=== PATIENT | male | born 1960 | race Caucasian/White ===

== ENCOUNTER 2016-09-29 07:19 | Emergency (ER) | payer MEDICARE ==
[2016-09-29] MEDS ORDERED: IPRATROPIUM/ALBUTEROL SULFATE 3 ML AMPUL.NEB NEB ONE (07:22)
[2016-09-29] MEDS ORDERED: FUROSEMIDE 40 MG/4 ML VIAL ONE (07:22)
--- NOTE | 2016-09-29 07:28 | ED Physician Documentation ---
General Adult - HISTORIAN Historian: patient, paramedics - HPI Stated Complaint: shortness of breath Chief Complaint: General Adult Onset: hours Timing: still present Severity: moderate Further Comments: yes (Pt is a 56 yo male with sob, no chest pain. Pt has not been feeling well for 2 days. Pt is an insulin dependent diabetic, but stopped taking his insulin when he wasn't feeling well. Pt has hx CHF, heavy smoking, R AKA.) - ROS CONST: weakness EYES/ENT: none CVS/RESP: shortness of breath GI/: none MS/SKIN/LYMPH: other (ulceration L heel, R AKA) - PAST HX Past History: AMI, hypertension, other (Arthritis, R AKA, CHF, Anxiety, Depression, DM, HLD, HTN, Heavy smoker, schizophrenia.) Other History: diabetes Type 2 Surgeries/Procedures: other (R AKA) Allergies/Adverse Reactions: Allergies Allergy/AdvReac Type Severity Reaction Status Date / Time No Known Allergies Allergy Unverified 09/29/16 07:48 Home Medications: Ambulatory Orders Medication Instructions Recorded Amitriptyline HCl 25 mg PO HS 09/29/16 Furosemide [Furosemide] 20 mg PO DAILY 09/29/16 Gabapentin [Neurontin] 600 mg PO TID 09/29/16 Insulin Aspart [Novolog Flexpen] 10 units SQ TID 09/29/16 Insulin Glargine,Hum.rec.anlog 40 units SQ HS 09/29/16 [Lantus Solostar] Lorazepam [Ativan] 2 mg PO HS 09/29/16 Metoprolol Tartrate [Lopressor] 200 mg PO DAILY 09/29/16 Omeprazole [Omeprazole] 40 mg PO AM 09/29/16 Potassium Chloride [Klor-Con 10 meq PO BID 09/29/16 Sprinkle] Simvastatin [Zocor] 80 mg PO HS 09/29/16 Tramadol HCl [Ultram] 50 mg PO Q4H PRN 09/29/16 Venlafaxine HCl [Effexor Xr] 37.5 mg PO DAILY 09/29/16 Venlafaxine HCl [Effexor Xr] 150 mg PO DAILY 09/29/16 - SOCIAL HX Smoking History: other (greater than 2 packs/day) - FAMILY HX Family History: No - REVIEWED ASSESSMENTS Nursing Assessment Reviewed: Yes Vitals Reviewed: Yes Progress - Progress Progress: Duoneb HFN x 2 Lasix 40 mg IV venous pH 7.32 u/a 2+ glucose, 2+blood, 3+ protein CXR: Impression: Cardiomegaly with pulmonary congestion/edema Right lower lung consolidation with small pleural effusion Left parahilar infiltrate/ pulmonary edema. Recommend followup to resolution Pt's PCP is Dr. Patricia Castle at [facility]. Levaquin 500 mg IV Transfer to [facility], Dr. Patel. - EKG/XRAY/CT EKG: NSR (HR=93 normal pr interval; normal axis; RBBB.) ED Results Lab/Radiology - Orders Orders: ED Orders Category Date Time Status Furosemide [Lasix] Med 09/29/16 07:22 Discontinued 40 mg .ROUTE .STK-MED ONE Ipratropium/Albuterol Sulfate [Duoneb] Med 09/29/16 07:22 Discontinued 3 ml NEB .STK-MED ONE General Adult Physical Exam - PHYSICAL EXAM GENERAL APPEARANCE: moderate distress EENT: pharynx normal NECK: normal inspection, supple RESPIRATORY: no resp distress, chest non-tender, wheezes, rales CVS: reg rate & rhythm, heart sounds normal ABDOMEN: soft, no organomegaly, normal bowel sounds RECTAL: heme positive stool BACK: normal inspection, no CVA tenderness SKIN: warm/dry, other (L heel ulceration, R AKA) EXTREMITIES: normal range of motion NEURO: oriented X3, motor nml, sensation nml Discharge Clincal Impression: SOB (shortness of breath), DM, Hyperglycemia, pneumonia, Heme positive stool CHF (congestive heart failure) Qualifiers: Congestive heart failure type: unspecified congestive heart failure type Congestive heart failure chronicity: chronic Qualified Code(s): I50.9 - Heart failure, unspecified Anemia Qualifiers: Anemia type: unspecified type Qualified Code(s): D64.9 - Anemia, unspecified Referrals: Primary Doctor,No [Primary Care Provider] - Home Medications: Ambulatory Orders Amitriptyline HCl 25 mg PO HS 09/29/16 Furosemide [Furosemide] 20 mg PO DAILY 09/29/16 Gabapentin [Neurontin] 600 mg PO TID 09/29/16 Insulin Aspart [Novolog Flexpen] 10 units SQ TID 09/29/16 Insulin Glargine,Hum.rec.anlog [Lantus Solostar] 40 units SQ HS 09/29/16 Lorazepam [Ativan] 2 mg PO HS 09/29/16 Metoprolol Tartrate [Lopressor] 200 mg PO DAILY 09/29/16 Omeprazole [Omeprazole] 40 mg PO AM 09/29/16 Potassium Chloride [Klor-Con Sprinkle] 10 meq PO BID 09/29/16 Simvastatin [Zocor] 80 mg PO HS 09/29/16 Tramadol HCl [Ultram] 50 mg PO Q4H PRN 09/29/16 Venlafaxine HCl [Effexor Xr] 37.5 mg PO DAILY 09/29/16 Venlafaxine HCl [Effexor Xr] 150 mg PO DAILY 09/29/16 Condition: Stable Disposition: 02 XFER SHT-TRM HOSP Decision to Admit: NO Decision Time: 08:33
[2016-09-29 07:37] LABS: BASOPHILS % 0.4 (0.0-1.5); EOSINOPHILS % 2.4 % (0.0-6.8); MEAN CORPUSCULAR HEMOGLOBIN 28.5 pg (28.0-34.0); MEAN CORPUSCULAR VOLUME 90.6 fl (80.0-100.0); NEUTROPHILS # 6.5 # k/uL (1.4-7.7)
[2016-09-29 08:03] LABS: APPEARANCE,URINE CLEAR (CLEAR); COLOR,URINE YELLOW (YELLOW); OCCULT BLOOD,URINE 2+ (NEGATIVE); UROBILINOGEN URINE 0.2 Eu (0.2-1.0)
[2016-09-29] MEDS ORDERED: INSULIN REGULAR, HUMAN 100 UNIT/ML 3ML VIAL SQ STA ×2 (08:03→09:18)
[2016-09-29] MEDS ORDERED: LEVOFLOXACIN 500MG/D5W 100ML 100 ML IV ONE (10:22)
[2016-09-29] MEDS ORDERED: LEVOFLOXACIN 500MG/D5W 100ML 500 MG in PREMIX BAG 1 BAG IV SCH (10:30)
[2016-09-29 11:03] VITALS: BP 184/87
--- NOTE | 2016-09-30 05:21 | Diagnostic Imaging Report ---
TOBIAS BARAJAS [facility] [id number] [facility] [address] [place] [address]. [id number] Report Submission Date: September 29, 2016 7:54:58 AM CDT Patient Study Name: KIAN BROWN Date: September 29, 2016 7:37:26 AM CDT Modality Type: CR Gender: M Description: CHEST : 56 Institution: [facility] Physician: TOBIAS BARAJAS Single frontal view of the chest History: PCXR, SOA X2 DAYS (Hx) / SOA Findings: Comparison: October 12, 2007 Cardiomegaly, prominent pulmonary nori are again noted. There are diffuse reticulonodular lung opacities slightly more prominent on the current study. There is right basilar opacity which obscures the right hemidiaphragm. Patient is rotated. Small right pleural effusion. There is left parahilar atelectasis / opacity. No acute osseous pathology Impression: Cardiomegaly with pulmonary congestion/edema Right lower lung consolidation with small pleural effusion Left parahilar infiltrate/ pulmonary edema. Recommend followup to resolution Electronically signed on September 29, 2016 7:54:58 AM CDT by: Maryellen ALVAREZ
== END 2016-09-29 10:59 | disposition short-term general hospital (02) ==
LOC: ED 07:19
DX: R06.02 Shortness of breath (principal); E11.9 Type 2 diabetes mellitus without complications; J18.9 Pneumonia, unspecified organism; I50.9 Heart failure, unspecified; D64.9 Anemia, unspecified
CPT/HCPCS: 36415; 71010; 80053; 81002; 82272; 82550; 82553; 83880; 84484; 85025; 85379; 87040; J1815; J1940; J1956; 96374; 99284

== ENCOUNTER 2017-01-27 11:30 | Inpatient (IN) | payer MEDICARE ==
[2017-01-27] MEDS ORDERED: ALBUTEROL 90MCG/PUFF INHALER IH PRN (15:14)
[2017-01-27] MEDS ORDERED: ONDANSETRON HCL 4 MG TAB.RAPDIS PO PRN (15:19)
[2017-01-27] MEDS ORDERED: BISACODYL 10 MG SUPP.RECT RC PRN (15:19)
[2017-01-27] MEDS ORDERED: LISINOPRIL 5 MG TABLET PO ONE (15:23)
[2017-01-27] MEDS ORDERED: GABAPENTIN 300 MG CAPSULE ONE (15:23)
[2017-01-27] MEDS ORDERED: VENLAFAXINE HCL 37.5 MG CAP.ER.24H PO ONE (15:26)
[2017-01-27] MEDS ORDERED: POTASSIUM CHLORIDE 10 MEQ TABLET.ER PO ONE (15:26)
--- NOTE | 2017-01-27 15:26 | History and Physical Report ---
History of Present Illnes - History of Present Illness Reason for Visit: gait disturbance History of Present Illness: Patient is a 56-year-old white male who recently was admitted to the [facility] for a left total knee replacement. Patient has had osteoarthritis that is been causing some increasing difficulties with ambulation for some time. Patient did not have any intraoperative or postoperative complications. Patient was transferred to this institution for further rehab services. Patient does have a history of diabetes mellitus peripheral vascular disease, hypertension, congestive heart failure,and iron deficiency anemia. At one time patient was diagnosed with schizophrenia but is currently not on any medications for this. Patient denies it is having any symptoms at this time. - Past Medical History Cardiac: CHF (diastolic), HTN, Hyperlipidemia, Other (peripheral vascular disease) Pulmonary: Other (bilateral pleural effusion, had 2l removed off right, 1 l off left) Gastrointestinal: GERD Heme/Onc: Iron deficiency anemia Hepatobiliary: denies: Cirrhosis, Cholelithiasis Psych: Depression, Schizophrenia Renal/: Chronic renal insuff, Other (hx of urinary retention) Endocrine: Diabetes (type 2) - Past Surgical History Past Surgical History: Hernia Repair (umbilical), Other (AKA -right, dental surgery) - Past Family History Mother Family History: DM, Hypertension, (69yo, CKD, DM, HTN) Father Family History: ([place]) Sister 1 Family History: Hypertension - Past Social History Smoke: 2 packs per day Occupation: disabled, lives alone Alcohol: None Drugs: None Lives: Alone Domestic Violence: Negative - Health Maintenance Health Maintenance: Influenza Vaccine. denies: Pneumococcal Vaccine Influenza Vaccine: Current for this Influenza Season Pneumonia Vaccine: No Resuscitation Status: Resusciation Status Resuscitation Status Do Not Resuscitate - Unable to Obtain History Unable to Obtain: No Review of Systems - Review of Systems Constitutional: Chills. negative: Fever Eyes: negative: pain, vision change, conjunctivae inflammation, redness ENT: negative: Ear Pain, Ear Discharge, Nose Pain, Nose Discharge, Nose Congestion, Mouth Pain, Mouth Swelling, Throat Pain Respiratory: Cough, Shortness of Breath, Sputum (cream, no blood). negative: Hemoptysis Cardiovascular: negative: Chest Pain, Palpitations, Paroxysmal Noc. Dyspnea, Edema, Light Headedness Gastrointestinal: negative: Nausea, Vomiting, Abdominal Pain, Diarrhea, Constipation, Melena, Hematochezia Genitourinary: negative: Dysuria, Frequency, Incontinence, Hematuria Musculoskeletal: negative: Neck Pain, Shoulder Pain, Leg Pain, Foot Pain Skin: negative: Rash Neurological: negative: Weakness, Numbness, Change in Speech, Confusion - Medications/Allergies Allergies/Adverse Reactions: Allergies Allergy/AdvReac Type Severity Reaction Status Date / Time No Known Allergies Allergy Unverified 09/29/16 07:48 Home Medications: Home Medications Ferrous Sulfate [Feosol] 325 mg PO D 01/27/17 Metoprolol Succinate [Toprol XL] 100 mg PO D 01/27/17 Tamsulosin HCl [Flomax] 0.4 mg PO [id number] 01/27/17 Venlafaxine HCl [Effexor Xr] 75 mg PO BID 01/27/17 gliPIZIDE [Glucotrol] 1 tab PO D 01/27/17 Current Inpatient Medications: Current Inpatient Medications Albuterol (Ventolin Hfa) 1 puff IH QID PRN PRN Reason: Wheezing Amitriptyline HCl (Elavil) 25 mg PO HS [facility] Amoxicillin/Clavulanate Potassium (Augmentin 875mg/125mg) 1 each PO BS [facility] Stop: 01/30/17 12:00 Bisacodyl (Dulcolax) 10 mg RC DAILY PRN PRN Reason: Constipation Diltiazem HCl (Cardizem Cd) 240 mg PO DAILY [facility] Enoxaparin Sodium (Lovenox) 40 mg SQ QD [facility] Stop: 02/10/17 12:59 Famotidine (Pepcid) 20 mg PO 717 [facility] Glipizide (Glucotrol) mg PO D [facility] Guaifenesin (Mucinex) 600 mg PO BID [facility] Insulin Human Lispro (Humalog) 0 - 12 unit SQ TID [facility] PRN Reason: Protocol Lisinopril (Prinivil) 10 mg PO NOW ONE Stop: 01/27/17 15:24 Metronidazole (Flagyl) 500 mg PO Q8 [facility] Stop: 02/06/17 08:00 Miconazole Nitrate (Monistat) 1 appl TP BID [facility] Miscellaneous (Gabapentin [Neurontin]) 600 mg PO TID [facility] Miscellaneous (Metoprolol Succinate [Toprol Xl]) 100 mg PO D [facility] Miscellaneous (Potassium Chloride [Klor-Con Sprinkle]) 10 meq PO BID [facility] Miscellaneous (Venlafaxine Hcl [Effexor Xr]) 75 mg PO BID [facility] Miscellaneous (Chem Sticks) 1 each CHEMX3 [facility] Ondansetron HCl (Zofran Odt) 4 mg PO Q6H PRN PRN Reason: Nausea / Vomiting Pantoprazole Sodium (Protonix) 40 mg PO 0700 [facility] Polyethylene Glycol (Miralax) 17 gm PO 1100 [facility] Fluticasone/Salmeterol (Advair 250-50 Diskus) 1 each IH BID [facility] Sucralfate (Carafate) 1 gm PO ACHS [facility] Tamsulosin HCl (Flomax) 0.4 mg PO [id number] [facility] Exam - Exam Vital Signs: Vital Signs (72 hours) 01/27/17 13:23 Temperature 97.6 F Pulse Rate [ 82 Pulse ox] Respiratory 20 Rate Blood Pressure 156/79 [Left Arm] O2 Sat by Pulse 99 Oximetry General: Alert, Oriented to Person, Oriented to Place, Oriented to Time, Cooperative HEENT: Mouth Mucous membr. moist/[place], Nose Mucous membr. moist/[place], Poor Dentition, Hearing Grossly Normal Neck: Normal Range of Motion. No: Stridor, Lymphadenopathy Carotids: WNL Thyroid: WNL Lungs: Clear to auscultation, Normal air movement, Speaks full Sentences. No: Respiratory Distress, Wheezes, Rales, Rhonchi Cardiovascular: Regular rate, Normal S1, Normal S2, No murmurs Abdomen: Normal bowel sounds, Soft, No tenderness, No hepatospenomegaly, No masses. No: Distended Integumentary: Normal, [place], Warm, Dry, Other (2.8cm wound to the heal, stage 2) Extremities: No clubbing, No cyanosis, No edema. No: Normal pulses (decrease posterior tibialis and dorsal pedis ) Neurological: Normal gait, Normal speech, Strength Equal Bilat, Sensation intact Psych/Mental Status: Mental status NL, Mood NL, Appropriate Affect, Intact Judgment Assessment/Plan - Assessment/Plan (1) Gait disturbance Status: Acute Assessment: Patient will be started on OT and PT (2) Diabetes type 2, controlled Status: Chronic Qualifiers: Diabetes mellitus complication status: with neurologic complications Diabetes mellitus complication detail: with polyneuropathy Diabetes mellitus senior care insulin use: with senior care use Qualified Code(s): E11.42 - Type 2 diabetes mellitus with diabetic polyneuropathy; Z79.4 - intermediate (current) use of insulin Assessment: continue insulin dose (3) Essential hypertension Status: Chronic Assessment: continue home meds (4) History of schizophrenia Status: Chronic Assessment: currently not under treatment (5) Anemia Status: Chronic Qualifiers: Anemia type: iron deficiency Qualified Code(s): D64.9 - Anemia, unspecified (6) CHF (congestive heart failure) Status: Chronic Qualifiers: Congestive heart failure type: unspecified congestive heart failure type Congestive heart failure chronicity: chronic Qualified Code(s): I50.9 - Heart failure, unspecified Assessment: stable continue with home meds VTE Assessment - RISK FACTOR SCORE VTE RISK FACTOR SCORES: AGE 40-60 YEARS, ANTICIPATED BED CONFINEMENT OR IMMOBILIZATION > 24 HOURS - RISK VTE MODERATE RISK: SCORE OF 2 (RISK PROXIMAL DVT 2-4%) PROPHYAXIS NEEDED
[2017-01-27] MEDS ORDERED: METOPROLOL SUCCINATE 50 MG TAB.ER.24H PO ONE (15:27)
[2017-01-27] MEDS: ENOXAPARIN SODIUM 40 MG/0.4 ML DISP.SYRIN SQ SCH (16:07)
[2017-01-27] MEDS: FLUTICASONE/SALMETEROL 250-50 INHALER IH SCH ×2 (16:09→21:01)
[2017-01-27] MEDS: AMOXICILLIN/POT 875/125 1 EACH PO SCH ×2 (16:10→20:57)
[2017-01-27] MEDS: SUCRALFATE 1 GM TABLET PO SCH ×3 (16:11→20:58)
[2017-01-27] MEDS: FAMOTIDINE 20 MG TABLET PO SCH ×2 (16:12→18:48)
[2017-01-27] MEDS: PANTOPRAZOLE SODIUM 40 MG TABLET PO SCH (16:12)
[2017-01-27] MEDS: POLYETHYLENE GLYCOL 3350 17 GM POWD.PACK PO SCH (17:28)
[2017-01-27] MEDS: Non-Formulary 1 EACH (Gabapentin [Neurontin] 600 MG) PO SCH (17:35)
[2017-01-27] MEDS: INSULIN LISPRO 100 UNIT/ML 3ML VIAL SQ SCH (17:41)
[2017-01-27 19:42] VITALS: BMI 29.7
[2017-01-27] MEDS: AMITRIPTYLINE HCL 25 MG TABLET PO SCH (20:58)
[2017-01-27] MEDS: metroNIDAZOLE 500 MG TABLET PO SCH (20:58)
[2017-01-27] MEDS: POTASSIUM CHLORIDE 10 MEQ PO SCH (20:59)
[2017-01-27] MEDS: MICONAZOLE NITRATE TP SCH (21:00)
[2017-01-27] MEDS ORDERED: VENLAFAXINE HCL 75 MG PO SCH (21:00)
[2017-01-27] MEDS: ACETAMINOPHEN 325 MG TABLET PO PRN (21:57)
[2017-01-28] MEDS: ACETAMINOPHEN 325 MG TABLET PO PRN ×2 (01:53→19:38)
[2017-01-28] MEDS ORDERED: VENLAFAXINE HCL 37.5 MG CAP.ER.24H PO ONE (04:48)
[2017-01-28] MEDS ORDERED: POTASSIUM CHLORIDE 10 MEQ TABLET.ER PO ONE ×2 (04:49→12:08)
[2017-01-28] MEDS: FAMOTIDINE 20 MG TABLET PO SCH ×2 (05:48→17:32)
[2017-01-28] MEDS: PANTOPRAZOLE SODIUM 40 MG TABLET PO SCH (05:48)
[2017-01-28] MEDS: metroNIDAZOLE 500 MG TABLET PO SCH ×3 (05:48→21:38)
[2017-01-28] MEDS: SUCRALFATE 1 GM TABLET PO SCH ×4 (05:48→21:38)
[2017-01-28 06:04] LABS: BASOPHILS % 0.5 (0.0-1.5); EOSINOPHILS % 5.3 % (0.0-6.8); MEAN CORPUSCULAR HEMOGLOBIN 26.2 pg (28.0-34.0); MEAN CORPUSCULAR VOLUME 84.8 fl (80.0-100.0); NEUTROPHILS # 5.3 # k/uL (1.4-7.7)
[2017-01-28 06:16] LABS: eGFR (African) > 60; eGFR (Non-African) > 60
[2017-01-28] MEDS: Non-Formulary 1 EACH (Gabapentin [Neurontin] 600 MG) PO SCH (07:31)
[2017-01-28] MEDS: AMOXICILLIN/POT 875/125 1 EACH PO SCH ×2 (07:41→17:32)
[2017-01-28] MEDS: INSULIN LISPRO 100 UNIT/ML 3ML VIAL SQ SCH ×3 (09:39→18:20)
[2017-01-28] MEDS: FLUTICASONE/SALMETEROL 250-50 INHALER IH SCH ×2 (09:43→21:39)
[2017-01-28] MEDS: POTASSIUM CHLORIDE 10 MEQ PO SCH (09:44)
[2017-01-28] MEDS: VENLAFAXINE HCL 37.5 MG CAP.ER.24H PO SCH ×2 (09:44→21:39)
[2017-01-28] MEDS: DILTIAZEM HCL 120 MG CAP.ER.24H PO SCH (09:45)
[2017-01-28] MEDS: METOPROLOL SUCCINATE 50 MG TAB.ER.24H PO SCH (09:45)
[2017-01-28] MEDS: GABAPENTIN 300 MG CAPSULE PO SCH ×3 (09:51→17:34)
[2017-01-28] MEDS: ENOXAPARIN SODIUM 40 MG/0.4 ML DISP.SYRIN SQ SCH (12:47)
[2017-01-28] MEDS: POLYETHYLENE GLYCOL 3350 17 GM POWD.PACK PO SCH (12:52)
[2017-01-28] MEDS: TAMSULOSIN HCL 0.4 MG CAP.ER.24H PO SCH ×2 (16:35→17:31)
[2017-01-28] MEDS: MICONAZOLE NITRATE TP SCH ×2 (17:33→21:43)
[2017-01-28] MEDS: AMITRIPTYLINE HCL 25 MG TABLET PO SCH (21:38)
[2017-01-28] MEDS: POTASSIUM CHLORIDE 10 MEQ TABLET.ER PO SCH (21:39)
[2017-01-29] MEDS: metroNIDAZOLE 500 MG TABLET PO SCH ×3 (05:30→18:22)
[2017-01-29] MEDS: FAMOTIDINE 20 MG TABLET PO SCH ×2 (06:20→16:14)
[2017-01-29] MEDS: PANTOPRAZOLE SODIUM 40 MG TABLET PO SCH (06:20)
[2017-01-29] MEDS: SUCRALFATE 1 GM TABLET PO SCH ×4 (06:20→18:20)
[2017-01-29] MEDS: DILTIAZEM HCL 120 MG CAP.ER.24H PO SCH (09:12)
[2017-01-29] MEDS: AMOXICILLIN/POT 875/125 1 EACH PO SCH ×2 (09:12→18:19)
[2017-01-29] MEDS: FLUTICASONE/SALMETEROL 250-50 INHALER IH SCH ×2 (09:12→18:20)
[2017-01-29] MEDS: VENLAFAXINE HCL 37.5 MG CAP.ER.24H PO SCH ×2 (09:13→18:21)
[2017-01-29] MEDS: POTASSIUM CHLORIDE 10 MEQ TABLET.ER PO SCH ×2 (09:13→18:23)
[2017-01-29] MEDS: MICONAZOLE NITRATE TP SCH ×2 (09:14→18:23)
[2017-01-29] MEDS: METOPROLOL SUCCINATE 50 MG TAB.ER.24H PO SCH (09:14)
[2017-01-29] MEDS: GABAPENTIN 300 MG CAPSULE PO SCH ×3 (09:14→18:19)
[2017-01-29] MEDS: INSULIN LISPRO 100 UNIT/ML 3ML VIAL SQ SCH ×3 (09:21→18:41)
[2017-01-29] MEDS: POLYETHYLENE GLYCOL 3350 17 GM POWD.PACK PO SCH (11:28)
[2017-01-29] MEDS: ENOXAPARIN SODIUM 40 MG/0.4 ML DISP.SYRIN SQ SCH (13:18)
[2017-01-29] MEDS: TAMSULOSIN HCL 0.4 MG CAP.ER.24H PO SCH (18:19)
[2017-01-29] MEDS: AMITRIPTYLINE HCL 25 MG TABLET PO SCH (18:22)
[2017-01-30] MEDS: ACETAMINOPHEN 325 MG TABLET PO PRN (00:29)
[2017-01-30] MEDS: metroNIDAZOLE 500 MG TABLET PO SCH ×3 (05:09→19:42)
[2017-01-30] MEDS: SUCRALFATE 1 GM TABLET PO SCH ×4 (06:08→19:41)
[2017-01-30] MEDS: FAMOTIDINE 20 MG TABLET PO SCH ×2 (06:08→17:21)
[2017-01-30] MEDS: PANTOPRAZOLE SODIUM 40 MG TABLET PO SCH (06:08)
[2017-01-30] MEDS: INSULIN LISPRO 100 UNIT/ML 3ML VIAL SQ SCH ×3 (07:44→17:26)
[2017-01-30] MEDS: AMOXICILLIN/POT 875/125 1 EACH PO SCH (11:35)
[2017-01-30] MEDS: FLUTICASONE/SALMETEROL 250-50 INHALER IH SCH ×2 (11:36→19:41)
[2017-01-30] MEDS: DILTIAZEM HCL 120 MG CAP.ER.24H PO SCH (11:37)
[2017-01-30] MEDS: VENLAFAXINE HCL 37.5 MG CAP.ER.24H PO SCH ×2 (11:37→19:41)
[2017-01-30] MEDS: MICONAZOLE NITRATE TP SCH ×2 (11:41→19:47)
[2017-01-30] MEDS: GABAPENTIN 300 MG CAPSULE PO SCH ×3 (11:43→17:23)
[2017-01-30] MEDS: METOPROLOL SUCCINATE 50 MG TAB.ER.24H PO SCH ×2 (11:44→11:45)
[2017-01-30] MEDS: POTASSIUM CHLORIDE 10 MEQ TABLET.ER PO SCH ×2 (11:44→19:45)
[2017-01-30] MEDS: POLYETHYLENE GLYCOL 3350 17 GM POWD.PACK PO SCH (11:48)
[2017-01-30] MEDS: ENOXAPARIN SODIUM 40 MG/0.4 ML DISP.SYRIN SQ SCH (12:21)
[2017-01-30] MEDS: TAMSULOSIN HCL 0.4 MG CAP.ER.24H PO SCH (17:22)
[2017-01-30] MEDS: AMITRIPTYLINE HCL 25 MG TABLET PO SCH (19:41)
[2017-01-31] MEDS: metroNIDAZOLE 500 MG TABLET PO SCH ×3 (05:50→20:43)
[2017-01-31] MEDS: SUCRALFATE 1 GM TABLET PO SCH ×4 (06:00→20:40)
[2017-01-31] MEDS: FAMOTIDINE 20 MG TABLET PO SCH ×2 (06:00→17:27)
[2017-01-31] MEDS: PANTOPRAZOLE SODIUM 40 MG TABLET PO SCH (06:00)
[2017-01-31] MEDS: FLUTICASONE/SALMETEROL 250-50 INHALER IH SCH ×2 (08:04→20:40)
[2017-01-31] MEDS: DILTIAZEM HCL 120 MG CAP.ER.24H PO SCH (08:12)
[2017-01-31] MEDS: VENLAFAXINE HCL 37.5 MG CAP.ER.24H PO SCH ×2 (08:12→20:41)
[2017-01-31] MEDS: GABAPENTIN 300 MG CAPSULE PO SCH ×3 (08:12→20:40)
[2017-01-31] MEDS: POTASSIUM CHLORIDE 10 MEQ TABLET.ER PO SCH ×2 (08:14→20:42)
[2017-01-31] MEDS: MICONAZOLE NITRATE TP SCH ×2 (08:16→20:42)
[2017-01-31] MEDS: INSULIN LISPRO 100 UNIT/ML 3ML VIAL SQ SCH ×3 (08:23→17:31)
[2017-01-31] MEDS: POLYETHYLENE GLYCOL 3350 17 GM POWD.PACK PO SCH (11:39)
[2017-01-31] MEDS: ENOXAPARIN SODIUM 40 MG/0.4 ML DISP.SYRIN SQ SCH (16:28)
[2017-01-31] MEDS: TAMSULOSIN HCL 0.4 MG CAP.ER.24H PO SCH (17:26)
[2017-01-31] MEDS: AMITRIPTYLINE HCL 25 MG TABLET PO SCH (20:49)
[2017-01-31] MEDS: ACETAMINOPHEN 325 MG TABLET PO PRN (20:49)
[2017-02-01] MEDS: SUCRALFATE 1 GM TABLET PO SCH ×4 (05:51→21:19)
[2017-02-01] MEDS: FAMOTIDINE 20 MG TABLET PO SCH ×2 (05:51→17:28)
[2017-02-01] MEDS: PANTOPRAZOLE SODIUM 40 MG TABLET PO SCH (05:52)
[2017-02-01] MEDS: metroNIDAZOLE 500 MG TABLET PO SCH ×3 (05:52→21:20)
[2017-02-01] MEDS: INSULIN LISPRO 100 UNIT/ML 3ML VIAL SQ SCH ×3 (07:41→17:35)
[2017-02-01] MEDS: FLUTICASONE/SALMETEROL 250-50 INHALER IH SCH ×2 (07:45→21:19)
[2017-02-01] MEDS: DILTIAZEM HCL 120 MG CAP.ER.24H PO SCH (07:46)
[2017-02-01] MEDS: MICONAZOLE NITRATE TP SCH ×2 (07:46→21:20)
[2017-02-01] MEDS: GABAPENTIN 300 MG CAPSULE PO SCH ×3 (07:47→17:28)
[2017-02-01] MEDS: VENLAFAXINE HCL 37.5 MG CAP.ER.24H PO SCH ×2 (07:47→21:19)
[2017-02-01] MEDS: METOPROLOL SUCCINATE 50 MG TAB.ER.24H PO SCH (07:47)
[2017-02-01] MEDS: POTASSIUM CHLORIDE 10 MEQ TABLET.ER PO SCH ×2 (07:48→21:20)
[2017-02-01] MEDS: POLYETHYLENE GLYCOL 3350 17 GM POWD.PACK PO SCH (12:50)
[2017-02-01] MEDS: ENOXAPARIN SODIUM 40 MG/0.4 ML DISP.SYRIN SQ SCH (12:51)
[2017-02-01] MEDS: TAMSULOSIN HCL 0.4 MG CAP.ER.24H PO SCH (17:27)
[2017-02-01] MEDS: AMITRIPTYLINE HCL 25 MG TABLET PO SCH (21:20)
[2017-02-01] MEDS: ACETAMINOPHEN 325 MG TABLET PO PRN (21:24)
[2017-02-02] MEDS: metroNIDAZOLE 500 MG TABLET PO SCH ×3 (05:31→20:25)
[2017-02-02] MEDS: SUCRALFATE 1 GM TABLET PO SCH ×4 (05:31→20:26)
[2017-02-02] MEDS: PANTOPRAZOLE SODIUM 40 MG TABLET PO SCH (05:31)
[2017-02-02] MEDS: FAMOTIDINE 20 MG TABLET PO SCH ×2 (05:32→17:47)
[2017-02-02] MEDS: ACETAMINOPHEN 325 MG TABLET PO PRN ×2 (05:37→20:30)
[2017-02-02] MEDS: FLUTICASONE/SALMETEROL 250-50 INHALER IH SCH ×2 (09:23→20:24)
[2017-02-02] MEDS: INSULIN LISPRO 100 UNIT/ML 3ML VIAL SQ SCH ×3 (09:24→18:45)
[2017-02-02] MEDS: DILTIAZEM HCL 120 MG CAP.ER.24H PO SCH (09:27)
[2017-02-02] MEDS: VENLAFAXINE HCL 37.5 MG CAP.ER.24H PO SCH ×2 (09:28→20:25)
[2017-02-02] MEDS: POTASSIUM CHLORIDE 10 MEQ TABLET.ER PO SCH ×2 (09:30→20:26)
[2017-02-02] MEDS: GABAPENTIN 300 MG CAPSULE PO SCH ×3 (09:31→17:47)
[2017-02-02] MEDS: METOPROLOL SUCCINATE 50 MG TAB.ER.24H PO SCH (09:31)
[2017-02-02] MEDS: MICONAZOLE NITRATE TP SCH ×2 (09:32→20:25)
[2017-02-02] MEDS: POLYETHYLENE GLYCOL 3350 17 GM POWD.PACK PO SCH (11:45)
[2017-02-02] MEDS: ENOXAPARIN SODIUM 40 MG/0.4 ML DISP.SYRIN SQ SCH (12:06)
[2017-02-02] MEDS: TAMSULOSIN HCL 0.4 MG CAP.ER.24H PO SCH (17:44)
[2017-02-02] MEDS: AMITRIPTYLINE HCL 25 MG TABLET PO SCH (20:24)
[2017-02-03] MEDS: ACETAMINOPHEN 325 MG TABLET PO PRN ×2 (01:33→08:48)
[2017-02-03] MEDS: metroNIDAZOLE 500 MG TABLET PO SCH (05:52)
[2017-02-03] MEDS: SUCRALFATE 1 GM TABLET PO SCH (05:52)
[2017-02-03] MEDS: FAMOTIDINE 20 MG TABLET PO SCH (05:52)
[2017-02-03] MEDS: PANTOPRAZOLE SODIUM 40 MG TABLET PO SCH (05:53)
[2017-02-03] MEDS: FLUTICASONE/SALMETEROL 250-50 INHALER IH SCH (08:43)
[2017-02-03] MEDS: VENLAFAXINE HCL 37.5 MG CAP.ER.24H PO SCH (08:44)
[2017-02-03] MEDS: DILTIAZEM HCL 120 MG CAP.ER.24H PO SCH (08:44)
[2017-02-03] MEDS: POTASSIUM CHLORIDE 10 MEQ TABLET.ER PO SCH (08:45)
[2017-02-03] MEDS: GABAPENTIN 300 MG CAPSULE PO SCH (08:45)
[2017-02-03] MEDS: MICONAZOLE NITRATE TP SCH (08:45)
[2017-02-03] MEDS: METOPROLOL SUCCINATE 50 MG TAB.ER.24H PO SCH (08:46)
[2017-02-03] MEDS: INSULIN LISPRO 100 UNIT/ML 3ML VIAL SQ SCH (08:47)
[2017-02-03 10:47] VITALS: BP 139/73
--- NOTE | 2017-02-04 08:38 | Inpatient Progress Note ---
Subjective - Required Recertification Statement I anticipate X number of days because-include discharge plan: 5 days - Review of Systems Events since last encounter: stable Subjective: Patient seem to be doing well with physical and occupational therapy. Patient being seen today for of a debate evaluation for home health services. It is plan for the patient's to possibly be discharged sometime next week. It was felt that the patient would continue to benefit from home physical occupational and alf services due to his gait disturbance and his wound on the left heel. Patient pain seem to be well-controlled at this time.Patient diabetes has been stable. Patient states that he is not been have any symptoms of congestive heart failure chest pain or chest pressure. Cardiovascular: Denies: Chest Pain, Palpitations Gastrointestinal: Denies: Abdominal Pain, Constipation Objective - Exam Vitals and I&O: Vital Signs Temp 96.7 F L 02/03/17 12:05 Pulse 76 02/03/17 12:05 Resp 19 02/03/17 12:05 BP 139/73 02/03/17 12:05 Pulse Ox 92 02/03/17 12:05 Intake & Output 02/03/17 02/03/17 02/04/17 11:59 23:59 11:59 Intake Total 1640 Balance 1640 Intake: Oral 1640 Other: Voiding Method Urinal # Voids 3 General: Alert, Oriented to Person, Oriented to Place, Oriented to Time, Cooperative Neck: Supple, No JVD Lungs: Clear to auscultation, Speaks full Sentences. No: Respiratory Distress, Wheezes, Rales, Rhonchi Cardiovascular: Regular rate, Normal S1, Normal S2, No murmurs Abdomen: Normal bowel sounds, Soft, No tenderness, No hepatospenomegaly Extremities: No clubbing Skin: Normal, [place], Warm, Other (heal wound looks about the same, stage 2) Neurological: Normal speech, Strength Equal Bilat. No: Normal gait Psych/Mental Status: Mental status NL, Mood NL, Appropriate Affect, Intact Judgment - Results Results: Laboratory Results WBC 7.40 K/ul (4.00-12.00) 01/28/17 05:50 RBC 3.14 M/ul (3.90-5.20) L 01/28/17 05:50 Hgb 8.2 g/dL (12.0-18.0) L 01/28/17 05:50 Hct 26.6 % (37.0-53.0) L 01/28/17 05:50 MCV 84.8 fl (80.0-100.0) 01/28/17 05:50 MCH 26.2 pg (28.0-34.0) L 01/28/17 05:50 MCHC 30.9 g/dL (30.0-36.0) 01/28/17 05:50 RDW 19.3 % (11.3-14.3) H 01/28/17 05:50 Plt Count 256 K/mm3 (130-400) 01/28/17 05:50 Neut % (Auto) 70.8 % (39.0-79.0) 01/28/17 05:50 Lymph % (Auto) 18.1 % (16.0-50.0) 01/28/17 05:50 [place] % (Auto) 4.0 % (0.0-11.0) 01/28/17 05:50 Eos % (Auto) 5.3 % (0.0-6.8) 01/28/17 05:50 Baso % (Auto) 0.5 (0.0-1.5) 01/28/17 05:50 Neut # (Auto) 5.3 # k/uL (1.4-7.7) 01/28/17 05:50 Lymph # (Auto) 1.4 # k/uL (0.6-4.0) 01/28/17 05:50 [place] # (Auto) 0.3 # k/uL (0.0-0.9) 01/28/17 05:50 Eos # (Auto) 0.4 # k/uL (0.0-0.6) 01/28/17 05:50 Baso # (Auto) 0.0 # k/uL (0.0-0.5) 01/28/17 05:50 Reactive Lymphs % 1.4 % (0.0-5.0) 01/28/17 05:50 Reactive Lymphs # 0.1 # k/uL (0.0-0.8) 01/28/17 05:50 Sodium 139 mmol/L (136-145) 01/28/17 05:50 Potassium 3.4 mmol/L (3.5-5.0) L 01/28/17 05:50 Chloride 107 mmol/L (98-110) 01/28/17 05:50 Carbon Dioxide 30 mmol/L (20-32) 01/28/17 05:50 BUN 18 mg/dL (10-26) 01/28/17 05:50 Creatinine 1.2 mg/dL (0.4-1.5) 01/28/17 05:50 Estimated Creat Clear 91 01/28/17 05:50 Est GFR ( Amer) > 60 (60-) 01/28/17 05:50 Est GFR (Non-Af Amer) > 60 (60-) 01/28/17 05:50 Glucose 194 mg/dL (70-99) H 01/28/17 05:50 Calcium 8.6 mg/dL (8.5-10.5) 01/28/17 05:50 Total Bilirubin 0.2 mg/dL (0.2-1.2) 01/28/17 05:50 AST 15 U/L (0-41) 01/28/17 05:50 ALT 5 U/L (0-45) 01/28/17 05:50 Alkaline Phosphatase 127 U/L (46-116) H 01/28/17 05:50 Total Protein 6.2 g/dL (6.0-8.5) 01/28/17 05:50 Albumin 2.8 g/dL (3.0-5.5) L 01/28/17 05:50 Assessment/Plan - Assessment/Plan (1) Non-healing open wound of heel Status: Acute Assessment: stable (2) Gait disturbance Status: Acute Assessment: improved (3) Diabetes type 2, controlled Status: Chronic Qualifiers: Diabetes mellitus complication status: with neurologic complications Diabetes mellitus complication detail: with polyneuropathy Diabetes mellitus 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
--- NOTE | 2017-02-04 08:38 | Discharge Summary ---
Discharge Summary - Discharge Sumary History of Present Illness: Patient is a 56-year-old white male who recently was admitted to the [facility] for a left total knee replacement. Patient has had osteoarthritis that is been causing some increasing difficulties with ambulation for some time. Patient did not have any intraoperative or postoperative complications. Patient was transferred to this institution for further rehab services. Patient does have a history of diabetes mellitus peripheral vascular disease, hypertension, congestive heart failure,and iron deficiency anemia. At one time patient was diagnosed with schizophrenia but is currently not on any medications for this. Patient denies it is having any symptoms at this time. Condition at Discharge: Stable Home Medications: Ambulatory Orders Medication Instructions Recorded Amitriptyline HCl 25 mg PO HS 09/29/16 Gabapentin [Neurontin] 600 mg PO TID 09/29/16 Potassium Chloride [Klor-Con 10 meq PO BID 09/29/16 Sprinkle] Ferrous Sulfate [Feosol] 325 mg PO D 01/27/17 Metoprolol Succinate [Toprol XL] 100 mg PO D 01/27/17 Tamsulosin HCl [Flomax] 0.4 mg PO [id number] 01/27/17 Venlafaxine HCl [Effexor Xr] 75 mg PO BID 01/27/17 gliPIZIDE [Glucotrol] 1 tab PO D 01/27/17 Acetaminophen [Tylenol] 650 mg PO Q4H PRN tablet 02/03/17 Insulin Aspart [Novolog Flexpen] 10 unit SQ DIRECTED #15 ml 02/03/17 Insulin Glargine,Hum.rec.anlog 40 unit SQ HS #15 ml 02/03/17 [Lantus Solostar] Metoprolol Succinate [Toprol XL] 100 mg PO D tab.er.24h 02/03/17 Sucralfate [Carafate] 1 gm PO ACHS #120 tablet 02/03/17 metroNIDAZOLE [Flagyl] 500 mg PO Q8 #10 tablet 02/03/17 Consultations this Visit: None Procedures this Visit: None Allergies/Adverse Reactions: Allergies Allergy/AdvReac Type Severity Reaction Status Date / Time No Known Allergies Allergy Unverified 09/29/16 07:48 Discharge Summary: Patient did participate with physical and occupational therapy well. Patient was highly motivated. Patient ambulatory status and ability to transfer did improve during his SNF stay. On admission patient did have a wound to to the left heel. This did not show much improvement during the hospitalization. It was felt that because he was diabetic and had a history of peripheral vascular disease and an amputation to his contralateral leg that it would be best if he was seen by wound clinic. Patient diabetes remains stable during his hospitalization with blood sugars running in the mid 100 range. Patient did not have any hypoglycemic episodes. Patient does have a history of benign prostatic hypertrophy with bladder outlet symptoms. This remains stable. Patient did not have any urinary difficulties. Patient was subsequently discharged home in stable condition. - Final Diagnosis (1) Gait disturbance Problems: Continue with home OT and PT (2) Non-healing open wound of heel Problems: Appointment made for wound clinic, home health services (3) Diabetes type 2, controlled Problems: stable, will restart home insulin therapy and monitor BS (4) Essential hypertension Problems: stable on home meds
== END 2017-02-03 10:05 | disposition home or self-care (01) | DRG 92 ==
LOC: SOUTH 11:30
PROVIDERS: ADMIT Family Medicine; ATTEND Family Medicine
DX: R26.9 Unspecified abnormalities of gait and mobility (principal); L97.429 Non-pressure chronic ulcer of left heel and midfoot with unspecified severity; E11.621 Type 2 diabetes mellitus with foot ulcer; I10 Essential (primary) hypertension
CPT/HCPCS: 36415; 80053; 85025; 97110; 97162; 97165; 97530; 97535; J1650; J1815; S1016